=== PATIENT | male | born 1955 ===

== ENCOUNTER 2016-06-23 17:11 | Inpatient (IN) | payer MEDICAID, OTHER ==
[2016-06-23] MEDS ORDERED: Sodium Chloride 0.9% 1,000 ML IV STA ×2 (17:44→18:31)
--- NOTE | 2016-06-23 17:57 | ED PDOC ---
HPI: Seizure Time Seen by Provider: 06/23/16 17:33 Chief Complaint (Nursing): Altered Mental Status Chief Complaint (Provider): Seizure History Per: Patient, Family (step-daughter, son in law) History/Exam Limitations: no limitations Recent Seizure Activity Began: Just Before Arrival Number Of Seizures: One Length Of Seizures (Duration): Unknown Quality Of Seizure: Generalized Associated Symptoms: Bit Tongue Additional Complaint(s): Enrique Conley is a 60 year old male, with a past medical history inclusive of HTN (medication compliant), who presents to the ED on 06/23/16, via EMS and accompanied by his step-daughter and son in law, for evaluation s/p witnessed apparent seizure that had occurred just prior to arrival 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 Per son in law, as patient had been working he had suddenly lost color in his face, after which he had both begun to "shake " diffusely and started "foaming at the mouth". Patient had reportedly then started to lose consciousness, after which he had fallen to the ground, though there was no apparent head trauma. Upon interview, patient states that he had felt acutely dizzy prior to symptom onset but that he does not remember any of the subsequent events. Of note, per daughter patient had experienced a similar apparent seizure last year but was not given any anti-seizure medications after medical evaluation. Patient was also a former heavy drinker, but now only drinks between 1-2 beers daily. Patient denies having ingested any alcohol either yesterday or today. PMD: none provided Past Medical History Reviewed: Historical Data, Nursing Documentation, Vital Signs Vital Signs: Last Vital Signs Temp 97.9 F 06/25/16 15:41 Pulse 73 06/25/16 15:41 Resp 20 06/25/16 15:41 BP 136/73 06/25/16 15:41 Pulse Ox 95 06/25/16 15:41 - Medical History PMH: HTN - Surgical History Surgical History: No Surg Hx - Family History Family History: States: Unknown Family Hx - Social History Alcohol: Other (1-2 beers/day, former heavy drinker) Drugs: Denies - Immunization History Hx Tetanus Toxoid Vaccination: No Hx Influenza Vaccination: No Hx Pneumococcal Vaccination: No - Home Medications Home Medications: Ambulatory Orders Medication Instructions Recorded Albuterol HFA [Ventolin HFA 90 2 puff IH Q4H PRN 06/23/16 mcg/actuation (8 g)] Amlodipine Besylate/Benazepril 1 tab PO DAILY 06/23/16 [Lotrel 5-20 mg Capsule] Beclomethasone Dipropionate [Qvar 1 puff IH Q12H 06/23/16 80 mcg] Ibuprofen [Motrin Tab] 400 mg PO Q8H PRN 06/23/16 Lisinopril [Zestril] 20 mg PO DAILY 06/23/16 Montelukast [Singulair] 10 mg PO DAILY 06/23/16 - Allergies Allergies/Adverse Reactions: Allergies Allergy/AdvReac Type Severity Reaction Status Date / Time No Known Allergies Allergy Verified 06/23/16 17:15 Review of Systems ROS Statement: Except As Marked, All Systems Reviewed And Found Negative Neurological: Positive for: Seizures (characterized by diffuse body shaking, foaming at mouth), Dizziness (prior to onset of apparent seizure) Physical Exam - Reviewed Nursing Documentation Reviewed: Yes Vital Signs Reviewed: Yes - Physical Exam Appears: Positive for: Non-toxic, No Acute Distress Head Exam: Positive for: ATRAUMATIC, NORMAL INSPECTION, NORMOCEPHALIC Skin: Positive for: Normal Color, Warm, Dry Eye Exam: Positive for: Normal appearance, EOMI, PERRL ENT: Positive for: Other ((+) bite noted to tongue; no active bleeding) Neck: Positive for: Normal, Painless ROM, Supple Cardiovascular/Chest: Positive for: Regular Rate, Rhythm. Negative for: Murmur Respiratory: Positive for: Normal Breath Sounds. Negative for: Respiratory Distress Gastrointestinal/Abdominal: Positive for: Normal Exam, Soft. Negative for: Tenderness Back: Positive for: Normal Inspection Extremity: Positive for: Normal ROM (moving all extremities). Negative for: Deformity Neurologic/Psych: Positive for: Alert, Oriented (x3). Negative for: Motor/ Sensory Deficits (5/5 x4 extremities) - Laboratory Results Result Diagrams: 06/24/16 05:53 06/24/16 05:53 - ECG O2 Sat by Pulse Oximetry: 96 (RA) Pulse Ox Interpretation: Normal Medical Decision Making Medical Decision Makin:33 Initial Impression: seizure; will call neurologist international affairs vice president for consult Initial Plan: * EKG * CT Head w/o contrast * CXR * Labs * Alcohol Serum * PTT * PT * Glucose/Blood/POC * Drug Test General Toxicology Panel * Urinalysis * IV NS 1000ml at 1000mls/hr * Reevaluation 18:31 Ordered administration of additional IV NS 1000ml at 1000mls/hr. 19:[address] Washington (Neurologist international affairs vice president), who has recommended that patient be given an initial dose of Dilantin 1000mg IV and that after a period of 12 hours he be given Dilantin 300mg PO QD as well as Ativan 2mg Q6H PRN. Also recommended that patient be evaluated via CT Head w/IV contrast as MRI is not available at this time and that his Vitamin D levels be checked within the ED. 19:08 Discussed case w/Dr. Olivera (Medical Service international affairs vice president), patient will be admitted to Telemetry under his service for further evaluation/treatment. Plan has been discussed with patient and family at bedside, who are in agreement. Condition fair. 19:10 Discussed case w/Dr. Washington, as MRI is now available he has recommended that the administration of dexamethasone and/or mannitol be held until after MRI is performed. CT Head w/contrast has been cancelled. Scribe Attestation: Documented by Lucrecia Martinez, acting as a scribe for Priya Alvarez MD. Provider Scribe Attestation: All medical record entries made by the Scribe were at my direction and personally dictated by me. I have reviewed the chart and agree that the record accurately reflects my personal performance of the history, physical exam, medical decision making, and the department course for this patient. I have also personally directed, reviewed, and agree with the discharge instructions and disposition. Disposition - Clinical Impression Clinical Impression: Seizure, Mass of brain - Patient ED Disposition Is Patient to be Admitted: Yes - Disposition Disposition Time: 19:13 Condition: STABLE - Pt Status Changed To: Hospital Disposition Of: Inpatient - Admit Certification Admit to Inpatient:: After my assessment, the patient will require hospitalization for at least two midnights. This is because of the severity of symptoms shown, intensity of services needed, and/or the medical risk in this patient being treated as an outpatient.
[2016-06-23 18:18] LABS: ALB/GLOB RATIO 1.2 (1.0-2.1); ALCOHOL SERUM < 10 mg/dl (0-10); ALKALINE PHOSPHATASE 97 U/L (38-126); ALT/SGPT 31 U/L (21-72); AST/SGOT 37 U/L (17-59); BILIRUBIN,TOTAL 0.9 mg/dl (0.2-1.3); BLOOD UREA NITROGEN 12 mg/dl (9-20); CALCIUM 9.6 mg/dL (8.4-10.2); CHLORIDE 104 mmol/L (98-107); GFR AFRICAN-AMERICAN > 60; GLUCOSE,RANDOM 153 mg/dL (75-110); POTASSIUM 3.8 MMOL/L (3.6-5.0); SODIUM 145 mmol/l (132-148); TOTAL PROTEIN 8.3 G/DL (6.3-8.2)
[2016-06-23 18:25] LABS: CARBON DIOXIDE 11 mmol/L (22-30)
[2016-06-23 18:28] LABS: BASO % 0.3 % (0.0-2.0); EOS # 0.7 K/uL (0.0-0.7); EOS % 5.3 % (0.0-4.0); HEMATOCRIT 47.7 % (35.0-51.0); LYMPH # 3.4 K/uL (1.0-4.3); LYMPH % 24.8 % (20.0-40.0); MEAN CELL VOLUME 91.2 fl (80.0-94.0); MEAN CORPUSCULAR HEMOGLOBIN 30.5 pg (27.0-31.0); MEAN CORPUSCULAR HGB CONC 33.4 g/dL (33.0-37.0); MEAN PLATELET VOLUME 9.3 fl (7.2-11.7); MONO # 1.2 K/uL (0.0-0.8); MONO % 8.6 % (0.0-10.0); NEUT # 8.3 K/uL (1.8-7.0); NRBC % 0.1 % (0.0-0.0); RED CELL DISTRIBUTION WIDTH 14.4 % (11.5-14.5); WHITE BLOOD COUNT 13.6 K/uL (4.8-10.8)
--- NOTE | 2016-06-23 18:41 | RAD ---
HISTORY: Seizure COMPARISON: None FINDINGS: LUNGS: The lungs are well inflated and clear. PLEURA: No significant pleural effusion identified, no pneumothorax apparent. CARDIOVASCULAR: Normal. OSSEOUS STRUCTURES: No significant abnormalities. VISUALIZED UPPER ABDOMEN: Normal. OTHER FINDINGS: None. IMPRESSION: No active pulmonary disease.
--- NOTE | 2016-06-23 18:47 | CT ---
PROCEDURE: CT HEAD WITHOUT CONTRAST. HISTORY: Seizure COMPARISON: None available. TECHNIQUE: Axial computed tomography images were obtained through the head/brain without intravenous contrast. Radiation dose: Total exam DLP = 763.34 mGy-cm. This CT exam was performed using one or more of the following dose reduction techniques: Automated exposure control, adjustment of the mA and/or kV according to patient size, and/or use of iterative reconstruction technique. FINDINGS: HEMORRHAGE: No intracranial hemorrhage. BRAIN: There is focal low attenuation in the left paramedian posterior parietal subcortical white matter. There is no mass, mass effect or abnormal extra-axial fluid collection. VENTRICLES: There is mild age-related global parenchymal volume loss and proportionate enlargement of the ventricles and cortical sulci. There is mild asymmetry in the size of the lateral ventricles, right larger than left, likely an anatomic variant. CALVARIUM: The skull base and calvarium are normal. PARANASAL SINUSES: There is mild chronic sinusitis in the ethmoid air cells. The remaining included paranasal sinuses are predominantly clear. MASTOID AIR CELLS: Predominantly clear. OTHER FINDINGS: None. IMPRESSION: Abnormal density in the left paramedian posterior parietal subcortical white matter is nonspecific and could be related to vasogenic edema related to underlying lesion or cystic encephalomalacia from remote infarction. An MRI of the brain without and with intravenous contrast would be helpful for further characterization.
[2016-06-23 18:49] LABS: RBC URINE 1 /hpf (0-3); URINE BACTERIA FEW (<OCC); URINE BILIRUBIN NEGATIVE (NEGATIVE); URINE BLOOD SMALL (NEGATIVE); URINE COLOR YELLOW (YELLOW); URINE GLUCOSE (UA) NEG (Normal); URINE KETONE NEGATIVE (NEGATIVE); URINE LEUKOCYTE ESTERASE NEG Leu/uL (Negative); URINE PROTEIN 100 mg/dL (NEGATIVE); URINE UROBILINOGEN 0.2-1.0 mg/dL (0.2-1.0); WBC URINE 2 /hpf (0-5)
[2016-06-23 19:25] LABS: PARTIAL THROMBOPLASTIN TIME 25.9 SECONDS (23.3-32.5)
[2016-06-23] MEDS ORDERED: Gadodiamide 287 MG/ML VIAL (15ML) IV ONE (19:51)
[2016-06-23] MEDS ORDERED: Albuterol-Ipratrop 3 mg / 0.5 (3 ml) UD INH PRN (22:29)
[2016-06-24 06:07] LABS: HEMATOCRIT 43.3 % (35.0-51.0); MEAN CELL VOLUME 90.3 fl (80.0-94.0); MEAN CORPUSCULAR HEMOGLOBIN 30.1 pg (27.0-31.0); MEAN CORPUSCULAR HGB CONC 33.3 g/dL (33.0-37.0); RED CELL DISTRIBUTION WIDTH 14.2 % (11.5-14.5); WHITE BLOOD COUNT 12.8 K/uL (4.8-10.8)
[2016-06-24 06:21] LABS: ALB/GLOB RATIO 1.1 (1.0-2.1); ALKALINE PHOSPHATASE 70 U/L (38-126); ALT/SGPT 31 U/L (21-72); AST/SGOT 49 U/L (17-59); BILIRUBIN,TOTAL 1.1 mg/dl (0.2-1.3); BLOOD UREA NITROGEN 9 mg/dl (9-20); CALCIUM 8.8 mg/dL (8.4-10.2); CARBON DIOXIDE 22 mmol/L (22-30); CHLORIDE 111 mmol/L (98-107); GFR AFRICAN-AMERICAN > 60; GLUCOSE,RANDOM 92 mg/dL (75-110); POTASSIUM 3.8 MMOL/L (3.6-5.0); SODIUM 143 mmol/l (132-148); TOTAL PROTEIN 6.6 G/DL (6.3-8.2)
--- NOTE | 2016-06-24 07:47 | CP.PCM.HP ---
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 Per son in law, as patient had been working he had suddenly lost color in his face, after which he had both begun to "shake " diffusely and started "foaming at the mouth". Patient had reportedly then started to lose consciousness, after which he had fallen to the ground, though there was no apparent head trauma. Upon interview, patient states that he had felt acutely dizzy prior to symptom onset but that he does not remember any of the subsequent events. Of note, per daughter patient had experienced a similar apparent seizure last year but was not given any anti-seizure medications after medical evaluation. Patient was also a former heavy drinker, but now only drinks between 1-2 beers daily. Patient denies having ingested any alcohol either yesterday or today. Present on Admission - Present on Admission Any Indicators Present on Admission: No History of DVT/PE: No History of Uncontrolled Diabetes: No Urinary Catheter: No Decubitus Ulcer Present: No Review of Systems - Review of Systems All systems: reviewed and no additional remarkable complaints except Past Patient History - Past Medical History & Family History Past Medical History?: Yes Past Family History: Reviewed and not pertinent - Past Social History Smoking Status: Never Smoked Alcohol: None Drugs: Denies - CARDIAC Hx Cardiac Disorders: Yes Hx Hypertension: Yes - PULMONARY Hx Respiratory Disorders: Yes Hx Asthma: Yes - NEUROLOGICAL Hx Neurological Disorder: Yes Hx Seizures: Yes (1 EPISODE LAST YEAR/NO MEDS) - HEENT Hx HEENT Problems: No - RENAL Hx Chronic Kidney Disease: No - ENDOCRINE/METABOLIC Hx Endocrine Disorders: No - HEMATOLOGICAL/ONCOLOGICAL Hx Blood Disorders: No - INTEGUMENTARY Hx Dermatological Problems: No - MUSCULOSKELETAL/RHEUMATOLOGICAL Hx Musculoskeletal Disorders: Yes Hx Arthritis: Yes Hx Falls: No - GASTROINTESTINAL Hx Gastrointestinal Disorders: No - GENITOURINARY/GYNECOLOGICAL Hx Genitourinary Disorders: No - PSYCHIATRIC Hx Psychophysiologic Disorder: Yes Hx Substance Use: No - SURGICAL HISTORY Hx Surgeries: Yes Hx Herniorrhaphy: Yes - ANESTHESIA Hx Anesthesia: Yes Hx Anesthesia Reactions: No Hx Malignant Hyperthermia: No Meds Home Medications: Home Medication List Medication Instructions Recorded Confirmed Type Aspirin [Adult Low Dose Aspirin EC] 81 mg PO DAILY #30 tablet. 06/26/16 Rx Cholecalciferol (Vitamin D3) 2,000 unit PO DAILY #30 capsule 06/26/16 Rx [D3-2000] Folic Acid 1 mg PO DAILY #30 tab 06/26/16 Rx Thiamine [Vitamin B-1] 100 mg PO DAILY #30 tab 06/26/16 Rx Topiramate [Topamax] 50 mg PO BID #60 tab 06/26/16 Rx Allergies/Adverse Reactions: Allergies Allergy/AdvReac Type Severity Reaction Status Date / Time No Known Allergies Allergy Verified 06/23/16 17:15 Physical Exam - Constitutional Appears: Well, In Acute Distress - Head Exam Head Exam: ATRAUMATIC, NORMAL INSPECTION, NORMOCEPHALIC - Eye Exam Eye Exam: EOMI, Normal appearance, PERRL Pupil Exam: NORMAL ACCOMODATION, PERRL - ENT Exam ENT Exam: Mucous Membranes Moist, Normal Exam - Neck Exam Neck exam: Positive for: Full Rom, Normal Inspection - Respiratory Exam Respiratory Exam: Clear to Auscultation Bilateral, NORMAL BREATHING PATTERN - Cardiovascular Exam Cardiovascular Exam: REGULAR RHYTHM, +S1, +S2 - GI/Abdominal Exam GI & Abdominal Exam: Normal Bowel Sounds, Soft. absent: Tenderness - Extremities Exam Extremities exam: Positive for: normal inspection - Back Exam Back exam: NORMAL INSPECTION - Neurological Exam Neurological exam: Alert, CN II-XII Intact, Normal Gait, Oriented x3, Reflexes Normal - Psychiatric Exam Psychiatric exam: Normal Affect, Normal Mood - Skin Skin Exam: Dry, Intact, Normal Color, Warm Results - Vital Signs Recent Vital Signs: Last Vital Signs Temp 98.3 F 06/24/16 04:56 Pulse 66 06/24/16 04:56 Resp 18 06/24/16 04:56 BP 120/69 06/24/16 04:56 Pulse Ox 95 06/24/16 04:56 - Labs Result Diagrams: 06/24/16 05:53 06/24/16 05:53 Labs: Laboratory Results - last 24 hr 06/24/16 05:53 WBC 12.8 H RBC 4.80 Hgb 14.4 Hct 43.3 MCV 90.3 MCH 30.1 MCHC 33.3 RDW 14.2 Plt Count 178 Sodium 143 Potassium 3.8 Chloride 111 H Carbon Dioxide 22 Anion Gap 14 BUN 9 Creatinine 0.8 Est GFR ( Amer) > 60 Est GFR (Non-Af Amer) > 60 Random Glucose 92 Calcium 8.8 Total Bilirubin 1.1 AST 49 ALT 31 Alkaline Phosphatase 70 Total Protein 6.6 Albumin 3.5 D Globulin 3.1 Albumin/Globulin Ratio 1.1 - Imaging and Cardiology CT scan - head Status: Report reviewed by me Additional comment: IMPRESSION: Abnormal density in the left paramedian posterior parietal subcortical white matter is nonspecific and could be related to vasogenic edema related to underlying lesion or cystic encephalomalacia from remote infarction. An MRI of the brain without and with intravenous contrast would be helpful for further characterization. Chest x-ray Status: Report reviewed by me Additional comment: No Acute finding Assessment & Plan (1) Seizure Assessment and Plan: MRI with and w/o Contrast I/C Mass Loaded with Fosphenytoin Dilantin 300mg daily , Neuro on board Status: Acute Priority: High (2) Essential hypertension Assessment and Plan: Continue home medication Status: Chronic Priority: Low
[2016-06-24] MEDS ORDERED: WATER IM SCH (09:00)
[2016-06-24] MEDS ORDERED: THIAMINE IM SCH (09:00)
[2016-06-24] MEDS ORDERED: Thiamine 100 mg/ml Inj IV SCH (09:00)
[2016-06-24] MEDS ORDERED: DEXTROSE 5% IM SCH (09:00)
--- NOTE | 2016-06-24 09:47 | MRI ---
PROCEDURE: MRI BRAIN WITH AND WITHOUT CONTRAST HISTORY: Seizure, vasogenic edema on CT COMPARISON: Noncontrast head CT performed the same day TECHNIQUE: Multiplanar, multisequence MR images of the brain were obtained with and without intravenous contrast enhancement. 15 cc Omniscan was injected intravenously. FINDINGS: HEMORRHAGE: None DWI: No evidence of an acute or early subacute infarction. BRAIN PARENCHYMA: There is an old hemorrhagic infarction in the left paramedian posterior parieto-occipital lobe. There is no mass, mass effect or abnormal extra-axial fluid collection. ENHANCEMENT: No abnormal parenchymal or leptomeningeal intracranial enhancement. VENTRICLES: There is asymmetry in the size of lateral ventricles, right larger than left, likely an anatomic variant. No evidence of ventricular dilatation. There is mild global parenchymal volume loss and proportionate enlargement of the ventricles and cortical sulci, slightly advanced for the patient's age. CRANIUM: There is normal bone marrow signal pattern. ORBITS: Grossly unremarkable. PARANASAL SINUSES/MASTOIDS: There are retention cysts/polyps in the maxillary sinuses and mucosal thickening in the remaining paranasal sinuses. Mastoid air cells are predominantly clear. VASCULAR SYSTEM: There are normal signal voids in the larger intracranial arteries. OTHER FINDINGS: None . IMPRESSION: 1. No evidence of acute infarction or intracranial mass. 2. 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 3. Mild global parenchymal volume loss, slightly advanced for the patient's age. A preliminary report was provided by [facility] services.
[2016-06-24] MEDS: Thiamine 100 MG in Sodium Chloride 0.9% 100 ML IV SCH ×2 (10:19→10:20)
--- NOTE | 2016-06-24 23:37 | CP.PCM.CON ---
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 Per son in law, as patient had been working he had suddenly lost color in his face, after which he had both begun to "shake " diffusely and started "foaming at the mouth". Patient had reportedly then started to lose consciousness, after which he had fallen to the ground, though there was no apparent head trauma. Upon interview, patient states that he had felt acutely dizzy prior to symptom onset but that he does not remember any of the subsequent events. H/O Alcohol Abuse (Rhum) Of note, per daughter patient had experienced a similar apparent seizure last year but was not given any anti-seizure medications after medical evaluation. Patient was also a former heavy drinker, but now only drinks between 1-2 beers daily. Patient denies having ingested any alcohol either yesterday or today. IMPRESSION of CT Brain: Abnormal density in the left paramedian posterior parietal subcortical white matter is nonspecific and could be related to vasogenic edema related to underlying lesion or cystic encephalomalacia from remote infarction. An MRI of the brain without and with intravenous contrast would be helpful for further characterization. IMPRESSION of MRI Brain: 1. No evidence of acute infarction or intracranial mass. 2. 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 3. Mild global parenchymal volume loss, slightly advanced for the patient's age. 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 - Surgical History Surgical History: No Surg Hx - Family History Family History: States: Unknown Family Hx - Social History Alcohol: Other (1-2 beers/day, former heavy drinker) Drugs: Denies - Immunization History Hx Tetanus Toxoid Vaccination: No Hx Influenza Vaccination: No Hx Pneumococcal Vaccination: No - Home Medications Home Medications: Ambulatory Orders Medication Instructions Recorded Albuterol HFA [Ventolin HFA 90 2 puff IH Q4H PRN 06/23/16 mcg/actuation (8 g)] Amlodipine Besylate/Benazepril 1 tab PO DAILY 06/23/16 [Lotrel 5-20 mg Capsule] Beclomethasone Dipropionate [Qvar 1 puff IH Q12H 06/23/16 80 mcg] Ibuprofen [Motrin Tab] 400 mg PO Q8H PRN 06/23/16 Lisinopril [Zestril] 20 mg PO DAILY 06/23/16 Montelukast [Singulair] 10 mg PO DAILY 06/23/16 - Allergies Allergies/Adverse Reactions: Allergies Allergy/AdvReac Type Severity Reaction Status Date / Time No Known Allergies Allergy Verified 06/23/16 17:15 Review of Systems ROS Statement: Except As Marked, All Systems Reviewed And Found Negative Neurological: Positive for: Seizures (characterized by diffuse body shaking, foaming at mouth), Dizziness (prior to onset of apparent seizure) Physical Exam - Reviewed Nursing Documentation Reviewed: Yes Vital Signs Reviewed: Yes - Physical Exam Appears: Positive for: Non-toxic, No Acute Distress Head Exam: Positive for: ATRAUMATIC, NORMAL INSPECTION, NORMOCEPHALIC Skin: Positive for: Normal Color, Warm, Dry Eye Exam: Positive for: Normal appearance, EOMI, PERRL ENT: Positive for: Other ((+) bite noted to tongue; no active bleeding) Neck: Positive for: Normal, Painless ROM, Supple Cardiovascular/Chest: Positive for: Regular Rate, Rhythm. Negative for: Murmur Respiratory: Positive for: Normal Breath Sounds. Negative for: Respiratory Distress Gastrointestinal/Abdominal: Positive for: Normal Exam, Soft. Negative for: Tenderness Back: Positive for: Normal Inspection Extremity: Positive for: Normal ROM (moving all extremities). Negative for: Deformity Neurologic/Psych: Positive for: Alert, Oriented (x3). Negative for: Motor/ Sensory Deficits (5/5 x4 extremities) - Laboratory Results Result Diagrams: 06/23/16 18:00 06/23/16 18:00 - ECG O2 Sat by Pulse Oximetry: 96 (RA) Pulse Ox Interpretation: Normal Medical Decision Making Medical Decision Makin:33 Initial Impression: seizure; will call neurologist operational test mechanic for consult Initial Plan: * EKG * CT Head w/o contrast * CXR * Labs * Alcohol Serum * PTT * PT * Glucose/Blood/POC * Drug Test General Toxicology Panel * Urinalysis * IV NS 1000ml at 1000mls/hr * Reevaluation 18:31 Ordered administration of additional IV NS 1000ml at 1000mls/hr. 19:[address] Washington (Neurologist operational test mechanic), who has recommended that patient be given an initial dose of Dilantin 1000mg IV and that after a period of 12 hours he be given Dilantin 300mg PO QD as well as Ativan 2mg Q6H PRN. Also recommended that patient be evaluated via CT Head w/IV contrast as MRI is not available at this time and that his Vitamin D levels be checked within the ED. 19:08 Discussed case w/Dr. Olivera (Medical Service operational test mechanic), patient will be admitted to Telemetry under his service for further evaluation/treatment. Plan has been discussed with patient and family at bedside, who are in agreement. Condition fair. 19:10 Discussed case w/Dr. Washington, as MRI is now available he has recommended that the administration of dexamethasone and/or mannitol be held until after MRI is performed. CT Head w/contrast has been cancelled. Scribe Attestation: Documented by Lucrecia Martinez, acting as a scribe for Priya Alvarez MD. Provider Scribe Attestation: All medical record entries made by the Scribe were at my direction and personally dictated by me. I have reviewed the chart and agree that the record accurately reflects my personal performance of the history, physical exam, medical decision making, and the department course for this patient. I have also personally directed, reviewed, and agree with the discharge instructions and disposition. Disposition Past Patient History - Past Medical History & Family History Past Medical History?: Yes - Past Social History Smoking Status: Never Smoked - CARDIAC Hx Cardiac Disorders: Yes Hx Hypertension: Yes - PULMONARY Hx Respiratory Disorders: Yes Hx Asthma: Yes - NEUROLOGICAL Hx Neurological Disorder: Yes Hx Seizures: Yes (1 EPISODE LAST YEAR/NO MEDS) - HEENT Hx HEENT Problems: No - RENAL Hx Chronic Kidney Disease: No - ENDOCRINE/METABOLIC Hx Endocrine Disorders: No - HEMATOLOGICAL/ONCOLOGICAL Hx Blood Disorders: No - INTEGUMENTARY Hx Dermatological Problems: No - MUSCULOSKELETAL/RHEUMATOLOGICAL Hx Musculoskeletal Disorders: Yes Hx Arthritis: Yes Hx Falls: No - GASTROINTESTINAL Hx Gastrointestinal Disorders: No - GENITOURINARY/GYNECOLOGICAL Hx Genitourinary Disorders: No - PSYCHIATRIC Hx Psychophysiologic Disorder: Yes Hx Substance Use: No - SURGICAL HISTORY Hx Surgeries: Yes Hx Herniorrhaphy: Yes - ANESTHESIA Hx Anesthesia: Yes Hx Anesthesia Reactions: No Hx Malignant Hyperthermia: No Meds Allergies/Adverse Reactions: Allergies Allergy/AdvReac Type Severity Reaction Status Date / Time No Known Allergies Allergy Verified 06/23/16 17:15 - Medications Medications: Current Medications Acetaminophen (Tylenol 325mg Tab) 650 mg PO Q6 PRN PRN Reason: Pain, Mild (1-3) Albuterol/Ipratropium (Duoneb 3 Mg/0.5 Mg (3 Ml) Ud) 3 ml INH RQ6 PRN PRN Reason: Shortness of Breath Last Admin: 06/24/16 00:11 Dose: 3 ml Folic Acid (Folic Acid) 1 mg PO DAILY [facility] Last Admin: 06/24/16 08:30 Dose: 1 mg Thiamine HCl 100 mg/ Sodium (Chloride) 101 mls @ 101 mls/hr IV 1000 [facility] Last Admin: 06/24/16 10:20 Dose: Not Given Lorazepam (Ativan) 2 mg IVP Q2 PRN PRN Reason: Seizure activity Phenytoin Sodium (Dilantin) 300 mg PO DAILY [facility] Last Admin: 06/24/16 08:30 Dose: 300 mg Physical Exam - Neurological Exam Additional comments: Mental Status: He is strictly Occitan speaking from [facility]. Awake, Alert, Oriented X 3 Fluent coherent speech, in a good mood Cranial Nerves II to XII: No deficits Motor: Normal tone, Power, Muscle Bulk DTR 1/4 bilaterally equal Toes are down going Sensory: No Deficits Cerebellar: Normal FNT Stature and Gait: No Deficits Results - Vital Signs Recent Vital Signs: Last Vital Signs Temp 98.4 F 06/24/16 20:39 Pulse 68 06/24/16 20:39 Resp 20 06/24/16 20:39 BP 136/87 06/24/16 20:39 Pulse Ox 95 06/24/16 20:39 - Labs Result Diagrams: 06/24/16 05:53 06/24/16 05:53 Labs: Laboratory Results - last 24 hr 06/24/16 05:53 WBC 12.8 H RBC 4.80 Hgb 14.4 Hct 43.3 MCV 90.3 MCH 30.1 MCHC 33.3 RDW 14.2 Plt Count 178 Sodium 143 Potassium 3.8 Chloride 111 H Carbon Dioxide 22 Anion Gap 14 BUN 9 Creatinine 0.8 Est GFR ( Amer) > 60 Est GFR (Non-Af Amer) > 60 Random Glucose 92 Calcium 8.8 Total Bilirubin 1.1 AST 49 ALT 31 Alkaline Phosphatase 70 Total Protein 6.6 Albumin 3.5 D Globulin 3.1 Albumin/Globulin Ratio 1.1 25-OH Vitamin D Total 15.6 L Assessment & Plan (1) Essential hypertension Status: Acute (2) Seizure Assessment and Plan: 2nd spell after a year of his first spell of seizure. Start Dilantin for 1 week then D/C Start Topamax 50 mg Q 12 hrs now. Status: Acute (3) CVA (cerebral vascular accident) Assessment and Plan: Old Cerebral CVA with old Parenchymal Hge Rule out new CVA or new Hemorrhage. Status: Chronic
[2016-06-25] MEDS ORDERED: guaiFENesin DM 100 mg-10 mg/5 ml UD PO PRN (00:19)
[2016-06-25] MEDS ORDERED: Ergocalciferol 50,000 Intl Units Cap PO SCH ×3 (02:15→09:45)
[2016-06-25] MEDS: Thiamine 100 MG in Sodium Chloride 0.9% 100 ML IV SCH ×2 (08:33→12:51)
--- NOTE | 2016-06-25 09:17 | CP.PCM.PN ---
Subjective - Date & Time of Evaluation Date of Evaluation: 06/25/16 Time of Evaluation: 15:00 - Subjective Subjective: No further Episode of Seizure. Denies GONZALEZ or vomiting Objective - Vital Signs/Intake and Output Vital Signs (last 24 hours): Temp Pulse Resp BP Pulse Ox 97.6 F 64 18 146/81 98 06/25/16 08:00 06/25/16 08:00 06/25/16 08:00 06/25/16 08:00 06/25/16 08:00 - Medications Medications: Current Medications Acetaminophen (Tylenol 325mg Tab) 650 mg PO Q6 PRN PRN Reason: Pain, Mild (1-3) Albuterol/Ipratropium (Duoneb 3 Mg/0.5 Mg (3 Ml) Ud) 3 ml INH RQ6 PRN PRN Reason: Shortness of Breath Last Admin: 06/24/16 00:11 Dose: 3 ml Calcium Carbonate (Oscal) 500 mg PO BIDWM [facility] Last Admin: 06/25/16 08:28 Dose: 500 mg Ergocalciferol (Drisdol 50,000 Intl Units Cap) 1 cap PO Q7D [facility] Last Admin: 06/25/16 08:27 Dose: 1 cap Folic Acid (Folic Acid) 1 mg PO DAILY [facility] Last Admin: 06/25/16 08:27 Dose: 1 mg Guaifenesin/Dextromethorphan (Robitussin Dm) 5 ml PO Q6 PRN PRN Reason: Cough Thiamine HCl 100 mg/ Sodium (Chloride) 101 mls @ 101 mls/hr IV 1000 [facility] Last Admin: 06/25/16 08:33 Dose: 101 mls/hr Lorazepam (Ativan) 2 mg IVP Q2 PRN PRN Reason: Seizure activity Phenytoin Sodium (Dilantin) 300 mg PO ONCE [facility] Stop: 06/30/16 09:00 Last Admin: 06/25/16 08:32 Dose: 300 mg Topiramate (Topamax) 50 mg PO BID [facility] Last Admin: 06/25/16 08:28 Dose: 50 mg - Labs Labs: 06/24/16 05:53 06/24/16 05:53 PT 10.7 SECONDS (9.6-11.2) 06/23/16 18:00 INR 1.03 (0.92-1.08) 06/23/16 18:00 APTT 25.9 SECONDS (23.3-32.5) 06/23/16 18:00 - Constitutional Appears: Well, No Acute Distress - Head Exam Head Exam: ATRAUMATIC, NORMAL INSPECTION, NORMOCEPHALIC - Eye Exam Eye Exam: EOMI, Normal appearance, PERRL Pupil Exam: NORMAL ACCOMODATION, PERRL - ENT Exam ENT Exam: Mucous Membranes Moist, Normal Exam - Neck Exam Neck Exam: Full ROM, Normal Inspection. absent: Lymphadenopathy - Respiratory Exam Respiratory Exam: Clear to Ausculation Bilateral, NORMAL BREATHING PATTERN - Cardiovascular Exam Cardiovascular Exam: REGULAR RHYTHM, +S1, +S2. absent: Murmur - GI/Abdominal Exam GI & Abdominal Exam: Soft, Normal Bowel Sounds. absent: Tenderness - Extremities Exam Extremities Exam: Full ROM, Normal Capillary Refill, Normal Inspection. absent : Joint Swelling, Pedal Edema - Back Exam Back Exam: NORMAL INSPECTION - Neurological Exam Neurological Exam: Alert, Awake, CN II-XII Intact, Normal Gait, Oriented x3 - Psychiatric Exam Psychiatric exam: Normal Affect, Normal Mood - Skin Skin Exam: Dry, Intact, Normal Color, Warm - Additional Findings Additional findings: Brain MRI W/WO Contrast: IMPRESSION: 1. No evidence of acute infarction or intracranial mass. 2. 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 3. Mild global parenchymal volume loss, slightly advanced for the patient's age. 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 Mild global parenchymal volume loss, slightly advanced for the patient's age. -Continue Dilantin and Topiramate -Continue Neuro-check Q4 Status: Acute (2) Essential hypertension Assessment & Plan: Continue Current Care Status: Chronic
--- NOTE | 2016-06-25 21:56 | CP.PCM.PN ---
Subjective - Date & Time of Evaluation Date of Evaluation: 06/25/16 Time of Evaluation: 17:45 - Subjective Subjective: No Seizures are reported. He is on Topamax. Objective - Vital Signs/Intake and Output Vital Signs (last 24 hours): Temp Pulse Resp BP Pulse Ox 98.3 F 73 20 111/67 96 06/25/16 19:32 06/25/16 19:32 06/25/16 19:32 06/25/16 19:32 06/25/16 19:32 Intake and Output: 06/25/16 06/26/16 18:59 06:59 Intake Total 1200 Balance 1200 - Medications Medications: Current Medications Acetaminophen (Tylenol 325mg Tab) 650 mg PO Q6 PRN PRN Reason: Pain, Mild (1-3) Albuterol/Ipratropium (Duoneb 3 Mg/0.5 Mg (3 Ml) Ud) 3 ml INH RQ6 PRN PRN Reason: Shortness of Breath Last Admin: 06/24/16 00:11 Dose: 3 ml Calcium Carbonate (Oscal) 500 mg PO BIDWM [facility] Last Admin: 06/25/16 16:38 Dose: 500 mg Ergocalciferol (Drisdol 50,000 Intl Units Cap) 1 cap PO Q7D [facility] Last Admin: 06/25/16 08:27 Dose: 1 cap Folic Acid (Folic Acid) 1 mg PO DAILY [facility] Last Admin: 06/25/16 08:27 Dose: 1 mg Guaifenesin/Dextromethorphan (Robitussin Dm) 5 ml PO Q6 PRN PRN Reason: Cough Last Admin: 06/25/16 20:42 Dose: 5 ml Thiamine HCl 100 mg/ Sodium (Chloride) 101 mls @ 101 mls/hr IV 1000 [facility] Last Admin: 06/25/16 12:51 Dose: Not Given Lorazepam (Ativan) 2 mg IVP Q2 PRN PRN Reason: Seizure activity Phenytoin Sodium (Dilantin) 300 mg PO ONCE [facility] Stop: 06/30/16 09:00 Last Admin: 06/25/16 08:32 Dose: 300 mg Topiramate (Topamax) 50 mg PO BID [facility] Last Admin: 06/25/16 16:38 Dose: 50 mg - Labs Labs: 06/24/16 05:53 06/24/16 05:53 PT 10.7 SECONDS (9.6-11.2) 06/23/16 18:00 INR 1.03 (0.92-1.08) 06/23/16 18:00 APTT 25.9 SECONDS (23.3-32.5) 06/23/16 18:00 Assessment and Plan (1) Essential hypertension Status: Acute (2) Seizure Status: Acute (3) CVA (cerebral vascular accident) Status: Chronic
[2016-06-26 08:19] VITALS: RESP 20
[2016-06-26] MEDS: Thiamine 100 MG in Sodium Chloride 0.9% 100 ML IV SCH (09:12)
--- NOTE | 2016-06-26 10:36 | PQF GENQUE ---
This form is a permanent part of the medical record 06/26/16 Dr. Olivera, Please clarify the possible cause of the seizure if known. Patient with a history of an old hemorrhagic CVA is admitted with a witnessed seizure. Treated with Dilantin and Topamax. Clarification of your documentation is requested to better reflect the severity of illness and intensity of treatment of your patient. PHYSICIAN'S RESPONSE: Based on your medical judgment of the clinical indicators outlined above please clarify the following: [] Practitioner response [] If unable to determine, please check the box, sign and date. Present On Admission (POA) Indicator: [] Present at the time of admission [] Not present at the time of admission [] Clinically Undetermined In responding to this query, please exercise your independent professional judgment. The fact that a question is asked does not imply that any particular answer is desired or expected. Thank you for your clarification on this documentation. If you have any questions please call:extension [phone] Medical Records Dept * Thank you, Alexa Gil RN CDMP MTDD
[2016-06-26 13:31] VITALS: BP 146/92; PULSE 87; TEMP 97.6; O2SAT 96
--- NOTE | 2016-06-26 16:30 | CP.PCM.DIS ---
Provider - Provider Date of Admission: 06/23/16 19:13 Attending physician: Neha Olivera MD Time Spent in preparation of Discharge (in minutes): 30 Diagnosis - Discharge Diagnosis (1) Seizure Status: Acute Priority: High (2) Essential hypertension Status: Chronic Priority: Low Hospital Course - Lab Results Lab Results: Most Recent Lab Values WBC 12.8 K/uL (4.8-10.8) H 06/24/16 05:53 RBC 4.80 Mil/uL (4.40-5.90) 06/24/16 05:53 Hgb 14.4 g/dL (12.0-18.0) 06/24/16 05:53 Hct 43.3 % (35.0-51.0) 06/24/16 05:53 MCV 90.3 fl (80.0-94.0) 06/24/16 05:53 MCH 30.1 pg (27.0-31.0) 06/24/16 05:53 MCHC 33.3 g/dL (33.0-37.0) 06/24/16 05:53 RDW 14.2 % (11.5-14.5) 06/24/16 05:53 Plt Count 178 K/uL (130-400) 06/24/16 05:53 MPV 9.3 fl (7.2-11.7) 06/23/16 18:00 Neut % (Auto) 61.0 % (50.0-75.0) 06/23/16 18:00 Lymph % (Auto) 24.8 % (20.0-40.0) 06/23/16 18:00 [place] % (Auto) 8.6 % (0.0-10.0) 06/23/16 18:00 Eos % (Auto) 5.3 % (0.0-4.0) H 06/23/16 18:00 Baso % (Auto) 0.3 % (0.0-2.0) 06/23/16 18:00 Neut # 8.3 K/uL (1.8-7.0) H 06/23/16 18:00 Lymph # 3.4 K/uL (1.0-4.3) 06/23/16 18:00 [place] # 1.2 K/uL (0.0-0.8) H 06/23/16 18:00 Eos # 0.7 K/uL (0.0-0.7) 06/23/16 18:00 Baso # 0.0 K/uL (0.0-0.2) 06/23/16 18:00 PT 10.7 SECONDS (9.6-11.2) 06/23/16 18:00 INR 1.03 (0.92-1.08) 06/23/16 18:00 APTT 25.9 SECONDS (23.3-32.5) 06/23/16 18:00 Sodium 143 mmol/l (132-148) 06/24/16 05:53 Potassium 3.8 MMOL/L (3.6-5.0) 06/24/16 05:53 Chloride 111 mmol/L (98-107) H 06/24/16 05:53 Carbon Dioxide 22 mmol/L (22-30) 06/24/16 05:53 Anion Gap 14 (10-20) 06/24/16 05:53 BUN 9 mg/dl (9-20) 06/24/16 05:53 Creatinine 0.8 mg/dL (0.8-1.5) 06/24/16 05:53 Est GFR ( Amer) > 60 06/24/16 05:53 Est GFR (Non-Af Amer) > 60 06/24/16 05:53 POC Glucose (mg/dL) 145 mg/dL (65-110) H 06/23/16 17:29 Random Glucose 92 mg/dL (75-110) 06/24/16 05:53 Calcium 8.8 mg/dL (8.4-10.2) 06/24/16 05:53 Total Bilirubin 1.1 mg/dl (0.2-1.3) 06/24/16 05:53 AST 49 U/L (17-59) 06/24/16 05:53 ALT 31 U/L (21-72) 06/24/16 05:53 Alkaline Phosphatase 70 U/L (38-126) 06/24/16 05:53 Total Protein 6.6 G/DL (6.3-8.2) 06/24/16 05:53 Albumin 3.5 g/dL (3.5-5.0) D 06/24/16 05:53 Globulin 3.1 gm/dL (2.2-3.9) 06/24/16 05:53 Albumin/Globulin Ratio 1.1 (1.0-2.1) 06/24/16 05:53 25-OH Vitamin D Total 15.6 NG/ML (30.0-100.0) L 06/24/16 05:53 Urine Color Yellow (YELLOW) 06/23/16 18:15 Urine Clarity Clear (Clear) 06/23/16 18:15 Urine pH 5.0 (5.0-8.0) 06/23/16 18:15 Ur Specific [place] 1.019 (1.003-1.030) 06/23/16 18:15 Urine Protein 100 mg/dL (NEGATIVE) 06/23/16 18:15 Urine Glucose (UA) Neg mg/dL (Normal) 06/23/16 18:15 Urine Ketones Negative mg/dL (NEGATIVE) 06/23/16 18:15 Urine Blood Small (NEGATIVE) 06/23/16 18:15 Urine Nitrate Negative (NEGATIVE) 06/23/16 18:15 Urine Bilirubin Negative (NEGATIVE) 06/23/16 18:15 Urine Urobilinogen 0.2-1.0 mg/dL (0.2-1.0) 06/23/16 18:15 Ur Leukocyte Esterase Neg [place]/uL (Negative) 06/23/16 18:15 Urine RBC (Auto) 1 /hpf (0-3) 06/23/16 18:15 Urine Microscopic WBC 2 /hpf (0-5) 06/23/16 18:15 Ur Squamous Epith Cells < 1 /hpf (0-5) 06/23/16 18:15 Urine Bacteria Few (<OCC) H 06/23/16 18:15 Hyaline Casts 0-2 /hpf (0-2) 06/23/16 18:15 Alcohol, Quantitative < 10 mg/dl (0-10) 06/23/16 18:00 Discharge Exam - Head Exam Head Exam: ATRAUMATIC, NORMAL INSPECTION, NORMOCEPHALIC - Eye Exam Eye Exam: EOMI, Normal appearance, PERRL Pupil Exam: NORMAL ACCOMODATION, PERRL - Cardiovascular Exam Cardiovascular Exam: +S1, +S2 - GI/Abdominal Exam GI & Abdominal Exam: Normal Bowel Sounds - Neurological Exam Neurological exam: Alert, CN II-XII Intact, Normal Gait, Oriented x3, Reflexes Normal - Psychiatric Exam Psychiatric exam: Normal Affect, Normal Mood - Skin Skin Exam: Dry, Intact, Normal Color, Warm Discharge Plan - Discharge Medications Prescriptions: Aspirin [Adult Low Dose Aspirin EC] 81 mg PO DAILY #30 tablet. Cholecalciferol (Vitamin D3) [D3-1999] 2,000 unit PO DAILY #30 capsule Topiramate [Topamax] 50 mg PO BID #60 tab Thiamine [Vitamin B-1] 100 mg PO DAILY #30 tab - Follow Up Plan Condition: STABLE Disposition: HOME/ ROUTINE Instructions: New-Onset Seizure in Adults (DC), Hypertension (DC), Hypertension (GEN)
--- NOTE | 2016-06-26 18:56 | CARD ---
APPROVED REPORT EKG Measurement Heart [id number] <Conclusion> Sinus tachycardia Possible Left atrial enlargement Left axis deviation Pulmonary disease pattern Abnormal ECG
--- NOTE | 2016-06-26 19:49 | CP.PCM.PN ---
Subjective - Date & Time of Evaluation Date of Evaluation: 06/26/16 Time of Evaluation: 10:50 - Subjective Subjective: He has no seizures. He is on Topamax 50 mg Q 12 Hrs. He is advised to abstain from Alcohol and Toxic Drugs. His Topamax needs to be increased gradually. He is discharged home safely. Objective - Vital Signs/Intake and Output Vital Signs (last 24 hours): Temp Pulse Resp BP Pulse Ox 97.6 F 87 20 146/92 H 96 06/26/16 13:00 06/26/16 13:00 06/26/16 13:00 06/26/16 13:00 06/26/16 13:00 - Labs Labs: 06/24/16 05:53 06/24/16 05:53 PT 10.7 SECONDS (9.6-11.2) 06/23/16 18:00 INR 1.03 (0.92-1.08) 06/23/16 18:00 APTT 25.9 SECONDS (23.3-32.5) 06/23/16 18:00 Assessment and Plan (1) Essential hypertension Status: Chronic (2) Seizure Status: Acute (3) CVA (cerebral vascular accident) Status: Chronic
[2016-07-05 05:37] LABS: ACETONE None Detected; ETHANOL None Detected; METHANOL None Detected
== END 2016-06-26 13:15 | disposition home or self-care (01) | DRG 890 ==
LOC: H.ER 17:11 → H.ERHOLD 19:13 → H.TEL 21:55
PROVIDERS: ADMIT Internal Medicine; ATTEND Internal Medicine
DX: R56.9 Unspecified convulsions (principal); I10 Essential (primary) hypertension; J45.909 Unspecified asthma, uncomplicated; Z86.73 Personal history of transient ischemic attack (TIA), and cerebral infarction without residual deficits; M19.90 Unspecified osteoarthritis, unspecified site; Z87.898 Personal history of other specified conditions; Z79.82 Long term (current) use of aspirin; Z79.899 Other long term (current) drug therapy